=== PATIENT | female | born 1985 | race Two or more races ===

== ENCOUNTER → 2016-09-20 | Outpatient (REF) | payer MEDICAID, SELFPAY | LOC: M LAB REF 12:32 | PROVIDERS: ATTEND Physician Assistant | DX: R10.30 Lower abdominal pain, unspecified (principal) ==

== ENCOUNTER → 2016-10-09 | Outpatient (REF) | payer MEDICAID ==
[2016-10-09 13:42] LABS: MEAN CORPUSCULAR HEMOGLOBIN 28.8 pg (27.0-33.0); MEAN CORPUSCULAR HGB CONC 33.4 g/dl (32.0-36.5); MEAN CORPUSCULAR VOLUME 86.1 fl (80.0-96.0); RED CELL DISTRIBUTION WIDTH 12.8 % (11.5-14.5); WHITE BLOOD COUNT 7.5 K/mm3 (4.0-10.0)
[2016-10-09 13:53] LABS: ALBUMIN/GLOBULIN RATIO 1.14 (1.00-1.93); ALKALINE PHOSPHATASE 74 U/L (45-117); ALT/SGPT 17 U/L (12-78); ANION GAP 6 MEQ/L (8-16); AST/SGOT 14 U/L (15-37); BILIRUBIN,TOTAL 0.4 MG/DL (0.2-1.0); BLOOD UREA NITROGEN 14 MG/DL (7-18); CALCIUM LEVEL 9.7 MG/DL (8.5-10.1); CARBON DIOXIDE LEVEL 29 MEQ/L (21-32); CHLORIDE LEVEL 106 MEQ/L (98-107); CREATININE FOR GFR 0.84 MG/DL (0.55-1.02); GLOMERULAR FILTRATION RATE > 60.0 (>60); GLUCOSE, FASTING 75 MG/DL (70-105); POTASSIUM SERUM 4.5 MEQ/L (3.5-5.1); SODIUM LEVEL 141 MEQ/L (136-145); TOTAL PROTEIN 7.5 GM/DL (6.4-8.2)
== END ==
LOC: M SFHCPLAZ 10:44
PROVIDERS: ATTEND Nurse Practitioner Adult Health
DX: Z00.00 Encounter for general adult medical examination without abnormal findings (principal); E03.9 Hypothyroidism, unspecified

== ENCOUNTER 2017-02-28 12:31 | Emergency (ER) | payer MEDICAID ==
[~2017-02-28] VITALS: Ht 165.1 cm; Wt 79.5 kg
[2017-02-28 12:32] VITALS: BP 169/99
[2017-02-28] MEDS ORDERED: AMET90TA PO (12:42)
[2017-02-28] MEDS ORDERED: VENL1TAB35 PO (12:42)
[2017-02-28] MEDS ORDERED: LIOT25TA2 PO (12:42)
[2017-02-28] MEDS ORDERED: RANI75TA9 PO (12:42)
[2017-02-28] MEDS ORDERED: LOSA25TA8 PO (12:42)
[2017-02-28] MEDS ORDERED: BACT800T5 PO (13:50)
[2017-02-28] MEDS ORDERED: BACTRIM 160MG/800MG DS TAB PO ONE (14:00)
== END 2017-02-28 13:58 | disposition home or self-care (01) ==
LOC: M ED 12:31
DX: L02.212 Cutaneous abscess of back [any part, except buttock and flank] (principal); B95.62 Methicillin resistant Staphylococcus aureus infection as the cause of diseases classified elsewhere; I10 Essential (primary) hypertension; F41.9 Anxiety disorder, unspecified; N80.9 Endometriosis, unspecified; F17.210 Nicotine dependence, cigarettes, uncomplicated; Z79.899 Other long term (current) drug therapy

== ENCOUNTER 2017-04-07 10:32 | Emergency (ER) | payer MEDICAID ==
[~2017-04-07] VITALS: Ht 165.1 cm; Wt 79.5 kg
[~2017-04-07 10:32] MED LIST: AMET90TA PO; BACT800T5 PO; LIOT25TA2 PO; LOSA25TA8 PO; RANI75TA9 PO; VENL1TAB35 PO
[2017-04-07 10:33] VITALS: BP 134/92
[2017-04-07] MEDS ORDERED: DIFL150T PO (11:14)
[2017-04-07] MEDS ORDERED: DOXY100C37 PO (11:14)
== END 2017-04-07 11:26 | disposition home or self-care (01) ==
LOC: M ED 10:32
DX: L03.211 Cellulitis of face (principal); N80.9 Endometriosis, unspecified; Z86.14 Personal history of Methicillin resistant Staphylococcus aureus infection; Z79.899 Other long term (current) drug therapy

== ENCOUNTER 2017-04-22 08:58 | Emergency (ER) | payer MEDICAID, OTHER ==
[~2017-04-22] VITALS: Ht 165.1 cm; Wt 85.9 kg
[~2017-04-22 08:58] MED LIST changes: +DIFL150T PO; +DOXY100C37 PO
[2017-04-22] MEDS ORDERED: ZYRT10CA PO (10:17)
[2017-04-22 10:23] VITALS: BP 137/90
== END 2017-04-22 10:42 | disposition home or self-care (01) ==
LOC: M ED 08:58
DX: L25.9 Unspecified contact dermatitis, unspecified cause (principal)

== ENCOUNTER → 2017-05-02 | Outpatient (REF) | payer MEDICAID ==
[~2017-05-02] MED LIST changes: +ZYRT10CA PO
== END ==
LOC: M SFHCWAGY 12:15
PROVIDERS: ATTEND Nurse Practitioner Family
DX: Z12.4 Encounter for screening for malignant neoplasm of cervix (principal)

== ENCOUNTER 2017-08-09 14:16 | Emergency (ER) | payer MEDICAID ==
[2017-08-09 15:50] LABS: APPEARANCE, URINE HAZY (CLEAR); BACTERIA, URINE AUTO NEGATIVE (NEGATIVE); BILIRUBIN, URINE AUTO NEGATIVE (NEGATIVE); BLOOD, URINE BLOOD NEGATIVE (NEGATIVE); COLOR, URINE YELLOW (YELLOW); GLUCOSE, URINE (UA) AUTO NEGATIVE (NEGATIVE); KETONE, URINE AUTO 1+ mg/dL (NEGATIVE); LEUKOCYTE ESTERASE, URINE AUTO NEGATIVE (NEGATIVE); MUCUS, URINE LARGE (NEGATIVE); NITRITE, URINE AUTO NEGATIVE (NEGATIVE); PROTEIN, URINE AUTO NEGATIVE (NEGATIVE); RBC, URINE AUTO 3 /HPF (0-3); SPECIFIC GRAVITY URINE AUTO 1.025 (1.002-1.035); SQUAMOUS EPITHELIAL CELL UR AU 1 /HPF (0-6); UROBILINOGEN, URINE AUTO 0.2 mg/dL (0.0-2.0); WBC, URINE AUTO 1 /HPF (0-3)
[2017-08-09 15:54] LABS: BASO % 0.1 % (0.0-1.0); EOS % 0.1 % (0.0-3.0); HEMATOCRIT 40.9 % (36.0-47.0); HEMOGLOBIN 13.8 g/dl (12.0-16.0); IMMATURE GRANULOCYTE # 0.1 10^3/uL (0-0); IMMATURE GRANULOCYTE % 0.4 % (0-0); LYMPH % 6.1 % (24.0-44.0); MEAN CORPUSCULAR HGB CONC 33.7 g/dl (32.0-36.5); MEAN CORPUSCULAR VOLUME 83.1 fl (80.0-96.0); MONO # 0.6 10^3/uL (0.0-0.8); MONO % 3.8 % (0.0-5.0); NEUTROPHILS % 89.5 % (36.0-66.0); PLATELET COUNT, AUTOMATED 231 10^3/uL (150-450); RED BLOOD COUNT 4.92 10^6/uL (4.00-5.40); RED CELL DISTRIBUTION WIDTH 12.8 % (11.5-14.5); WHITE BLOOD COUNT 16.8 10^3/uL (4.0-10.0)
[2017-08-09 16:16] LABS: ALBUMIN 4.4 GM/DL (3.2-5.2); ALBUMIN/GLOBULIN RATIO 1.38 (1.00-1.93); ALKALINE PHOSPHATASE 72 U/L (45-117); ALT/SGPT 23 U/L (12-78); ANION GAP 10 MEQ/L (8-16); AST/SGOT 13 U/L (7-37); BILIRUBIN,TOTAL 0.7 MG/DL (0.2-1.0); BLOOD UREA NITROGEN 16 MG/DL (7-18); CALCIUM LEVEL 9.4 MG/DL (8.5-10.1); CARBON DIOXIDE LEVEL 25 MEQ/L (21-32); CHLORIDE LEVEL 105 MEQ/L (98-107); CREATININE FOR GFR 0.83 MG/DL (0.55-1.02); GLOMERULAR FILTRATION RATE > 60.0 (>60); GLUCOSE, FASTING 90 MG/DL (70-105); POTASSIUM SERUM 3.9 MEQ/L (3.5-5.1); SODIUM LEVEL 140 MEQ/L (136-145); TOTAL PROTEIN 7.6 GM/DL (6.4-8.2)
[2017-08-09] MEDS ORDERED: diphenhydrAMINE INJ 50MG/ML VIAL (J1200) As Ordered (16:53)
[2017-08-09] MEDS: diphenhydrAMINE INJ 50MG/ML VIAL (J1200) IV (16:54)
[2017-08-09] MEDS ORDERED: ISOVUE-370 76% 100ML VIAL (Q9967) As Ordered (16:55)
[2017-08-09] MEDS: KETOROLAC 30 MG/ML VIAL (J1885) IV (16:55)
[2017-08-09] MEDS: NS 1,000 ML IV (17:39)
[2017-08-09] MEDS ORDERED: METOCLOPRAMIDE INJ 10MG/2ML VIAL (J2765) As Ordered (17:49)
[2017-08-09] MEDS ORDERED: diphenhydrAMINE INJ 50MG/ML VIAL (J1200) IV (17:50)
[2017-08-09] MEDS: PROMETHAZINE INJ 25 MG/ML VIAL (J2550) IV (17:56)
== END 2017-08-09 19:15 | disposition home or self-care (01) ==
LOC: M ED 14:16
DX: K52.9 Noninfective gastroenteritis and colitis, unspecified (principal); I10 Essential (primary) hypertension; K21.9 Gastro-esophageal reflux disease without esophagitis; N80.9 Endometriosis, unspecified; E03.9 Hypothyroidism, unspecified; F41.9 Anxiety disorder, unspecified; F32.9 Major depressive disorder, single episode, unspecified; Z79.899 Other long term (current) drug therapy
CPT/HCPCS: J1200

== ENCOUNTER → 2017-12-13 | Outpatient (CLI) | payer MEDICAID ==
[2017-12-13 18:18] LABS: ALBUMIN 4.4 GM/DL (3.2-5.2); ALBUMIN/GLOBULIN RATIO 1.26 (1.00-1.93); ALKALINE PHOSPHATASE 68 U/L (45-117); ALT/SGPT 19 U/L (12-78); ANION GAP 8 MEQ/L (8-16); AST/SGOT 12 U/L (7-37); BILIRUBIN,TOTAL 0.4 MG/DL (0.2-1.0); BLOOD UREA NITROGEN 14 MG/DL (7-18); CALCIUM LEVEL 9.1 MG/DL (8.5-10.1); CARBON DIOXIDE LEVEL 25 MEQ/L (21-32); CHLORIDE LEVEL 109 MEQ/L (98-107); CREATININE FOR GFR 0.81 MG/DL (0.55-1.30); GLOMERULAR FILTRATION RATE > 60.0 (>60); GLUCOSE, FASTING 86 MG/DL (70-100); POTASSIUM SERUM 4.2 MEQ/L (3.5-5.1); SODIUM LEVEL 142 MEQ/L (136-145); THYROID STIMULATING HORMONE 0.358 uIU/ML (0.358-3.740); TOTAL PROTEIN 7.9 GM/DL (6.4-8.2)
== END ==
LOC: M WUC 12:01
DX: I10 Essential (primary) hypertension (principal); E03.9 Hypothyroidism, unspecified
CPT/HCPCS: 84443

== ENCOUNTER 2018-03-25 10:13 | Emergency (ER) | payer OTHER, MEDICAID ==
[2018-03-25] MEDS: KETOROLAC TROMETHAMINE 10 MG TAB PO (11:47)
== END 2018-03-25 12:16 | disposition home or self-care (01) ==
LOC: M ED 10:13
DX: S62.394A Other fracture of fourth metacarpal bone, right hand, initial encounter for closed fracture (principal); X50.9XXA Other and unspecified overexertion or strenuous movements or postures, initial encounter; Y92.89 Other specified places as the place of occurrence of the external cause; Y93.89 Activity, other specified; Y99.0 Civilian activity done for income or pay; I10 Essential (primary) hypertension; E03.9 Hypothyroidism, unspecified; N80.9 Endometriosis, unspecified; F41.9 Anxiety disorder, unspecified; F33.9 Major depressive disorder, recurrent, unspecified; Z79.890 Hormone replacement therapy; Z79.899 Other long term (current) drug therapy
CPT/HCPCS: 73090

== ENCOUNTER 2018-05-20 08:37 | Emergency (ER) | payer OTHER, MEDICAID ==
[2018-05-20] MEDS: IBUPROFEN 800 MG TAB PO (09:26)
== END 2018-05-20 10:11 | disposition home or self-care (01) ==
LOC: M ED 08:37
DX: S62.394B Other fracture of fourth metacarpal bone, right hand, initial encounter for open fracture (principal); W23.0XXA Caught, crushed, jammed, or pinched between moving objects, initial encounter; Y92.89 Other specified places as the place of occurrence of the external cause; I10 Essential (primary) hypertension; K21.9 Gastro-esophageal reflux disease without esophagitis; F33.9 Major depressive disorder, recurrent, unspecified; F41.9 Anxiety disorder, unspecified; Z79.899 Other long term (current) drug therapy
CPT/HCPCS: 73130

== ENCOUNTER → 2018-07-07 | Outpatient (CLI) | payer OTHER ==
[~2018-07-07] MED LIST changes: +IBUP-1022 PO; +KETO10TAB PO; +LOSA25TA33 PO; -LOSA25TA8 PO; +NORCOTAB PO; +RANI75TA10 PO; -RANI75TA9 PO; +ZOFR4TAB14 PO
--- NOTE | 2018-07-07 10:07 | REP ---
CT study of the right hand without contrast: History: Evaluate fourth metacarpal fracture. Question nonunion. Comparison radiographs are reviewed from March 25, 2018 and May 20, 2018 showing an obliquely oriented fracture through the distal fourth metacarpal. CT technique: Helical scanning is acquired. 2 mm axial images are generated. Coronal and sagittal multiplanar reformation images are generated. 3-D surface rendered imaging is generated and viewed rotationally. CT findings: The obliquely oriented fracture through the distal fourth metacarpal is seen. The fracture appears well healed. There is no evidence to suggest nonunion. There is some resultant shortening from slight override. No other malalignment is seen. No other fracture is seen. Impression: Obliquely oriented distal fourth metacarpal fracture with slight shortening. There is no evidence to suggest delayed or nonunion. There is evidence of good bony healing. Electronically Signed by Michael Joel MD 07/07/2018 11:44 A
== END ==
LOC: M RAD 08:35
PROVIDERS: ATTEND Physician Assistant
DX: S62.324D Displaced fracture of shaft of fourth metacarpal bone, right hand, subsequent encounter for fracture with routine healing (principal); X58.XXXD Exposure to other specified factors, subsequent encounter; Y92.89 Other specified places as the place of occurrence of the external cause

== ENCOUNTER → 2018-12-16 | Outpatient (REF) | payer MEDICAID ==
[~2018-12-16] MED LIST changes: +HYDR-3715 PO; +LOSA25TA14 PO; -LOSA25TA33 PO; -NORCOTAB PO; -RANI75TA10 PO; +RANI75TA15 PO
== END ==
LOC: M SFHCWAGY 15:21
PROVIDERS: ATTEND Nurse Practitioner Family
DX: Z12.4 Encounter for screening for malignant neoplasm of cervix (principal)

== ENCOUNTER 2019-02-25 11:50 | Emergency (ER) | payer MEDICAID ==
[~2019-02-25] VITALS: Ht 165.1 cm; Wt 86.4 kg
[2019-02-25] MEDS ORDERED: CLEO300C2 PO (15:33)
[2019-02-25 15:38] VITALS: BP 138/78
[2019-02-25 17:09] LABS: CHLAMYDIA DNA AMPLIFICATION NEGATIVE (NEGATIVE); GC DNA AMPLIFICATION NEGATIVE (NEGATIVE)
== END 2019-02-25 15:39 | disposition home or self-care (01) ==
LOC: M ED 11:50
DX: N76.0 Acute vaginitis (principal); N80.9 Endometriosis, unspecified; E03.9 Hypothyroidism, unspecified; Z79.899 Other long term (current) drug therapy; Z79.3 Long term (current) use of hormonal contraceptives

== ENCOUNTER → 2019-04-06 | Outpatient (REF) | payer MEDICAID ==
[~2019-04-06] MED LIST changes: +CLEO300C2 PO
[2019-04-08 14:07] LABS: HPV HYBRID CAPTURE II Negative (Negative)
== END ==
LOC: M SFHCWAGY 14:09
PROVIDERS: ATTEND Nurse Practitioner Family
DX: B37.3 Candidiasis of vulva and vagina (principal)

== ENCOUNTER 2019-08-23 08:34 | Emergency (ER) | payer MEDICAID ==
[~2019-08-23] VITALS: Ht 165.1 cm; Wt 88.4 kg
[~2019-08-23 08:34] MED LIST changes: -LIOT25TA2 PO; +LIOT25TA8 PO
[2019-08-23] MEDS ORDERED: CYCLOBENZAPRINE 10 MG TAB PO ONE (10:00)
[2019-08-23] MEDS ORDERED: KETOROLAC TROMETHAMINE 10 MG TAB PO ONE (10:00)
[2019-08-23 10:18] LABS: BASO % 0.1 % (0.0-1.0); EOS % 0.1 % (0.0-3.0); HEMATOCRIT 42.1 % (36.0-47.0); HEMOGLOBIN 13.9 g/dl (12.0-15.5); LYMPH # 0.3 10^3/uL (1.5-5.0); LYMPH % 4.3 % (24.0-44.0); MEAN CORPUSCULAR HEMOGLOBIN 28.3 pg (27.0-33.0); MEAN CORPUSCULAR VOLUME 85.6 fl (80.0-96.0); MONO # 0.5 10^3/uL (0.0-0.8); MONO % 7.4 % (0.0-5.0); NEUTROPHILS # 6.3 10^3/uL (1.5-8.5); NEUTROPHILS % 87.5 % (36.0-66.0); PLATELET COUNT, AUTOMATED 224 10^3/uL (150-450); RED BLOOD COUNT 4.92 10^6/uL (4.00-5.40); WHITE BLOOD COUNT 7.2 10^3/uL (4.0-10.0)
[2019-08-23 10:40] LABS: ERYTHROCYTE SEDIMENTATION RATE 4 mm/hr (0-20)
[2019-08-23 10:45] LABS: ALBUMIN 4.3 GM/DL (3.2-5.2); BILIRUBIN,DIRECT 0.1 MG/DL (0.0-0.2); BILIRUBIN,TOTAL 0.3 MG/DL (0.2-1.0); C REACTIVE PROTEIN QUANTITATIV 2.02 MG/DL (0.00-0.30); TOTAL PROTEIN 7.9 GM/DL (6.4-8.2)
[2019-08-23] MEDS ORDERED: CYCL5TAB PO (11:14)
[2019-08-23] MEDS ORDERED: KETO10TAB PO (11:14)
[2019-08-23 11:23] VITALS: BP 148/92
== END 2019-08-23 11:25 | disposition home or self-care (01) ==
LOC: M ED 08:34
DX: M62.838 Other muscle spasm (principal); I10 Essential (primary) hypertension; K21.9 Gastro-esophageal reflux disease without esophagitis; N80.9 Endometriosis, unspecified; E03.9 Hypothyroidism, unspecified; F41.9 Anxiety disorder, unspecified; F32.9 Major depressive disorder, single episode, unspecified; Z79.3 Long term (current) use of hormonal contraceptives; Z79.899 Other long term (current) drug therapy

== ENCOUNTER 2019-09-15 08:16 | Emergency (ER) | payer MEDICAID ==
[~2019-09-15] VITALS: Ht 165.1 cm; Wt 90.5 kg
[~2019-09-15 08:16] MED LIST changes: +CYCL5TAB PO
[2019-09-15] MEDS ORDERED: NAPR-885 PO (10:12)
[2019-09-15 10:14] VITALS: BP 133/90
--- NOTE | 2019-09-15 10:15 | REP ---
Sternum three views: No sternal fracture is identified. The study is otherwise unremarkable. Electronically Signed by Saurabh Gill MD 09/15/2019 10:06 A
--- NOTE | 2019-09-15 10:16 | REP ---
PA chest, single view: Comparison is 08/09/2017. The lung simental are clear. The cardiac size is normal. The leisa, mediastinum, and skeletal structures are unremarkable. Impression: Negative PA chest. There is no interval change. Electronically Signed by Saurabh Gill MD 09/15/2019 10:07 A
== END 2019-09-15 10:17 | disposition home or self-care (01) ==
LOC: M ED 08:16
DX: S23.429A Unspecified sprain of sternum, initial encounter (principal); S80.02XA Contusion of left knee, initial encounter; W22.8XXA Striking against or struck by other objects, initial encounter; Y92.9 Unspecified place or not applicable; Y93.9 Activity, unspecified; Y99.9 Unspecified external cause status; I10 Essential (primary) hypertension; N80.9 Endometriosis, unspecified; Z79.3 Long term (current) use of hormonal contraceptives; Z79.899 Other long term (current) drug therapy

== ENCOUNTER → 2019-11-26 | Outpatient (REF) | payer MEDICAID ==
[~2019-11-26] MED LIST changes: +NAPR-885 PO
[2019-11-26 16:12] LABS: BASO % 0.1 % (0.0-1.0); EOS # 0.1 10^3/uL (0.0-0.5); EOS % 1.1 % (0.0-3.0); HEMOGLOBIN 14.8 g/dl (12.0-15.5); LYMPH # 2.5 10^3/uL (1.5-5.0); LYMPH % 26.9 % (24.0-44.0); MEAN CORPUSCULAR HEMOGLOBIN 28.1 pg (27.0-33.0); MEAN CORPUSCULAR HGB CONC 32.9 g/dl (32.0-36.5); MEAN CORPUSCULAR VOLUME 85.6 fl (80.0-96.0); MONO # 0.5 10^3/uL (0.0-0.8); MONO % 5.3 % (0.0-5.0); NEUTROPHILS # 6.3 10^3/uL (1.5-8.5); NEUTROPHILS % 66.2 % (36.0-66.0); PLATELET COUNT, AUTOMATED 278 10^3/uL (150-450); RED BLOOD COUNT 5.26 10^6/uL (4.00-5.40); WHITE BLOOD COUNT 9.4 10^3/uL (4.0-10.0)
[2019-11-26 16:44] LABS: ALBUMIN 4.1 GM/DL (3.2-5.2); ALT/SGPT 24 U/L (12-78); BILIRUBIN,TOTAL 0.7 MG/DL (0.2-1.0); BLOOD UREA NITROGEN 19 MG/DL (7-18); CALCIUM LEVEL 9.7 MG/DL (8.5-10.1); CARBON DIOXIDE LEVEL 25 MEQ/L (21-32); CHLORIDE LEVEL 105 MEQ/L (98-107); CHOLESTEROL LEVEL 254 MG/DL (<200); CREATININE FOR GFR 0.77 MG/DL (0.55-1.30); FREE T4 0.78 NG/DL (0.76-1.46); GLOMERULAR FILTRATION RATE > 60.0 (>60); GLUCOSE, FASTING 86 MG/DL (70-100); HDL CHOLESTEROL 50 MG/DL (>40); LDL CHOLESTEROL 160 MG/DL (<100); NON-HDL-C 204 MG/DL; POTASSIUM SERUM 4.6 MEQ/L (3.5-5.1); SODIUM LEVEL 137 MEQ/L (136-145); TOTAL PROTEIN 7.9 GM/DL (6.4-8.2); TRIGLYCERIDES LEVEL 219 MG/DL (<150)
[2019-11-26 17:36] LABS: HEMOGLOBIN A1c 5.4 %
== END ==
LOC: M SFHCPLAZ 13:43
PROVIDERS: ATTEND Physician Assistant
DX: E03.9 Hypothyroidism, unspecified (principal); I10 Essential (primary) hypertension; Z00.00 Encounter for general adult medical examination without abnormal findings; K21.9 Gastro-esophageal reflux disease without esophagitis; Z13.220 Encounter for screening for lipoid disorders; Z13.1 Encounter for screening for diabetes mellitus

== ENCOUNTER 2020-07-15 19:19 | Emergency (ER) | payer MEDICAID ==
[~2020-07-15] VITALS: Ht 165.1 cm; Wt 95.5 kg
[2020-07-15] MEDS ORDERED: ACETAMINOPHEN 500 MG TAB PO ONE (20:00)
[2020-07-15 20:29] LABS: RSV AMPLIFICATION NEGATIVE (NEGATIVE)
[2020-07-15 21:04] VITALS: BP 134/74
== END 2020-07-15 21:05 | disposition home or self-care (01) ==
LOC: M ED 19:19
DX: U07.1 COVID-19 (principal); I10 Essential (primary) hypertension; E03.9 Hypothyroidism, unspecified; Z79.899 Other long term (current) drug therapy; Z79.3 Long term (current) use of hormonal contraceptives

== ENCOUNTER → 2021-04-25 | Outpatient (REF) | payer MEDICAID ==
[~2021-04-25] MED LIST changes: -DOXY100C37 PO; +DOXY1CAP62 PO
== END ==
LOC: M SFHCWAGY 17:47
PROVIDERS: ATTEND Nurse Practitioner Women's Health
DX: Z12.4 Encounter for screening for malignant neoplasm of cervix (principal)

== ENCOUNTER → 2021-11-23 | Outpatient (CLI) | payer MEDICAID, OTHER ==
[~2021-11-23] MED LIST changes: +DOXY-443 PO; -DOXY1CAP62 PO; +LOSA25TA13 PO; -LOSA25TA14 PO; +METHACHOLINE KIT (J7674) INH ONE
== END ==
LOC: M CARPUL 10:17
PROVIDERS: ATTEND Nurse Practitioner Adult Health
DX: R06.02 Shortness of breath (principal)
CPT/HCPCS: 71046; 94070; J7674

== ENCOUNTER → 2021-11-23 | Outpatient (CLI) | payer OTHER ==
[~2021-11-23] MED LIST changes: -METHACHOLINE KIT (J7674) INH ONE
[2021-11-23 12:59] LABS: HEMOGLOBIN A1c 5.3 %
[2021-11-23 13:01] LABS: ALBUMIN 3.6 GM/DL (3.2-5.2); ALT/SGPT 27 U/L (12-78); BILIRUBIN,TOTAL 0.3 MG/DL (0.2-1.0); BLOOD UREA NITROGEN 18 MG/DL (7-18); CALCIUM LEVEL 9.8 MG/DL (8.5-10.1); CARBON DIOXIDE LEVEL 27 MEQ/L (21-32); CHLORIDE LEVEL 107 MEQ/L (98-107); CREATININE FOR GFR 0.71 MG/DL (0.55-1.30); GLOMERULAR FILTRATION RATE > 60.0 (>60); GLUCOSE, FASTING 119 MG/DL (70-100); POTASSIUM SERUM 3.9 MEQ/L (3.5-5.1); SODIUM LEVEL 140 MEQ/L (136-145); TOTAL PROTEIN 7.6 GM/DL (6.4-8.2)
== END ==
LOC: M LAB 11:41
PROVIDERS: ATTEND Nurse Practitioner Adult Health
DX: I10 Essential (primary) hypertension (principal); Z13.1 Encounter for screening for diabetes mellitus; E03.9 Hypothyroidism, unspecified

== ENCOUNTER → 2022-03-21 | Outpatient (CLI) | payer OTHER | LOC: M PLAIMG 12:19 | PROVIDERS: ATTEND Nurse Practitioner Adult Health | DX: M54.2 Cervicalgia (principal) ==

== ENCOUNTER → 2022-05-24 | Outpatient (CLI) | payer OTHER ==
[2022-05-24 17:17] LABS: BASO % 0.3 % (0.0-1.0); EOS # 0.2 10^3/uL (0.0-0.5); EOS % 1.3 % (0.0-3.0); HEMATOCRIT 41.4 % (36.0-47.0); HEMOGLOBIN 13.6 g/dl (12.0-15.5); LYMPH # 2.4 10^3/uL (1.5-5.0); LYMPH % 18.4 % (24.0-44.0); MEAN CORPUSCULAR HEMOGLOBIN 27.9 pg (27.0-33.0); MEAN CORPUSCULAR HGB CONC 32.9 g/dl (32.0-36.5); MONO % 7.6 % (2.0-8.0); NEUTROPHILS # 9.3 10^3/uL (1.5-8.5); NEUTROPHILS % 72.1 % (36.0-66.0); PLATELET COUNT, AUTOMATED 296 10^3/uL (150-450); RED BLOOD COUNT 4.87 10^6/uL (4.00-5.40)
[2022-05-24 17:39] LABS: ALBUMIN 3.6 GM/DL (3.2-5.2); ALT/SGPT 24 U/L (12-78); AMYLASE 48 U/L (25-115); BILIRUBIN,TOTAL 0.4 MG/DL (0.2-1.0); BLOOD UREA NITROGEN 12 MG/DL (7-18); CALCIUM LEVEL 9.2 MG/DL (8.5-10.1); CARBON DIOXIDE LEVEL 26 MEQ/L (21-32); CHLORIDE LEVEL 106 MEQ/L (98-107); GLOMERULAR FILTRATION RATE > 60.0 (>60); GLUCOSE, FASTING 78 MG/DL (70-100); LIPASE 120 U/L (73-393); SODIUM LEVEL 139 MEQ/L (136-145); TOTAL PROTEIN 7.7 GM/DL (6.4-8.2)
== END ==
LOC: M WUC 13:45
PROVIDERS: ATTEND Physician Assistant
DX: R10.816 Epigastric abdominal tenderness (principal)

== ENCOUNTER 2022-08-12 07:36 | Emergency (ER) | payer OTHER ==
[~2022-08-12] VITALS: Ht 165.1 cm; Wt 97.7 kg
[2022-08-12] MEDS ORDERED: KETOROLAC 30 MG/ML 1ML VIAL IM ONE (09:00)
[2022-08-12] MEDS ORDERED: METH-1165 PO (09:03)
[2022-08-12] MEDS ORDERED: IBUP80TA PO (09:03)
[2022-08-12 09:30] VITALS: BP 170/110
== END 2022-08-12 09:46 | disposition home or self-care (01) ==
LOC: M ED 07:36
DX: S39.012A Strain of muscle, fascia and tendon of lower back, initial encounter (principal); X50.0XXA Overexertion from strenuous movement or load, initial encounter; I10 Essential (primary) hypertension; F41.9 Anxiety disorder, unspecified; F32.A Depression, unspecified; Z79.811 Long term (current) use of aromatase inhibitors; Z79.899 Other long term (current) drug therapy
CPT/HCPCS: 96372; 99283; J1885

== ENCOUNTER → 2022-09-02 | Outpatient (REF) | payer OTHER ==
[~2022-09-02] MED LIST changes: +IBUP80TA PO; +METH-1165 PO
== END ==
LOC: M SFHCWAGY 17:36
PROVIDERS: ATTEND Advanced Practice Midwife
DX: Z12.4 Encounter for screening for malignant neoplasm of cervix (principal)
CPT/HCPCS: 87624; G0123

== ENCOUNTER → 2022-11-11 | Outpatient (CLI) | payer OTHER ==
[2022-11-11 13:26] LABS: HEMATOCRIT 44.1 % (36.0-47.0); MEAN CORPUSCULAR HEMOGLOBIN 27.2 pg (27.0-33.0); MEAN CORPUSCULAR HGB CONC 31.7 g/dl (32.0-36.5); MEAN CORPUSCULAR VOLUME 85.6 fl (80.0-96.0); PLATELET COUNT, AUTOMATED 292 10^3/uL (150-450); RED BLOOD COUNT 5.15 10^6/uL (4.00-5.40); WHITE BLOOD COUNT 8.2 10^3/uL (4.0-10.0)
[2022-11-11 13:30] LABS: ALBUMIN 3.8 G/DL (3.2-5.2); ALKALINE PHOSPHATASE 75 U/L (46-116); ALT/SGPT 23 U/L (7.0-40); AST/SGOT 22 U/L (<34); BILIRUBIN,TOTAL 0.5 MG/DL (0.3-1.2); BLOOD UREA NITROGEN 12 MG/DL (9-23); CALCIUM LEVEL 9.3 MG/DL (8.5-10.1); CARBON DIOXIDE LEVEL 26 MMOL/L (20-31); CHLORIDE LEVEL 106 MMOL/L (98-107); CHOLESTEROL LEVEL 230 MG/DL (<200); CHOLESTEROL RISK RATIO 4.33 (<5); CREATININE FOR GFR 0.68 MG/DL (0.55-1.30); GLOMERULAR FILTRATION RATE > 60.0 (>60); GLUCOSE, FASTING 90 MG/DL (60-100); HDL CHOLESTEROL 53.1 MG/DL (>40); IRON (FE) 100 UG/DL (50-170); LDL CHOLESTEROL 145.1 MG/DL (<100); NON-HDL-C 176.9 MG/DL; PERCENT SATURATION 24.7 % (13.2-45.0); SODIUM LEVEL 137 MMOL/L (136-145); THYROID STIMULATING HORMONE 2.031 uIU/ML (0.55-4.78); TOTAL IRON BINDING CAPACITY 405 UG/DL (250-425); TOTAL PROTEIN 7.4 G/DL (5.7-8.2); TRIGLYCERIDES LEVEL 159 MG/DL (<150)
[2022-11-11 13:31] LABS: FERRITIN 84.7 NG/ML (7.3-270.7)
== END ==
LOC: M WUC 09:25
PROVIDERS: ATTEND Nurse Practitioner Adult Health
DX: Z00.00 Encounter for general adult medical examination without abnormal findings (principal); I10 Essential (primary) hypertension; Z13.220 Encounter for screening for lipoid disorders; E03.9 Hypothyroidism, unspecified

== ENCOUNTER 2023-07-18 10:08 | Day surgery (SDC) | payer OTHER ==
[~2023-07-18] VITALS: Ht 165.1 cm; Wt 99.8 kg
[~2023-07-18 10:08] MED LIST changes: +LEVOTAB18; +LOSA50TA28 PO; +OMEP40CA5 PO; +VENL75TA2 PO
[2023-07-18] MEDS ORDERED: ceFAZolin SOD 2 GM in IV 1 EA IV ONE (10:40)
[2023-07-18] MEDS ORDERED: propofoL 200 MG/20 ML VIAL As Ordered ONE (10:41)
[2023-07-18] MEDS ORDERED: ROCURONIUM BROMIDE 50MG/5ML VIAL As Ordered ONE ×2 (10:41→12:41)
[2023-07-18] MEDS ORDERED: MIDAZOLAM INJ 2MG/2ML VIAL As Ordered ONE (10:41)
[2023-07-18] MEDS ORDERED: ONDANSETRON 4MG 2ML VIAL As Ordered ONE (10:41)
[2023-07-18] MEDS ORDERED: LIDOCAINE 2% 100MG/5ML SDV (FOR ANES.) As Ordered ONE (10:41)
[2023-07-18] MEDS ORDERED: KETOROLAC 60MG 2ML VIAL As Ordered ONE (10:41)
[2023-07-18] MEDS ORDERED: SUGAMMADEX SODIUM 500 MG/5 ML VIAL (BRIDION) As Ordered ONE (10:41)
[2023-07-18] MEDS ORDERED: fentaNYL 250 MCG/5 ML INJECTION As Ordered ONE (10:41)
[2023-07-18 10:47] LABS: HEMATOCRIT 43.2 % (36.0-47.0); HEMOGLOBIN 14.9 g/dl (12.0-15.5); MEAN CORPUSCULAR HEMOGLOBIN 28.9 pg (27.0-33.0); MEAN CORPUSCULAR HGB CONC 34.5 g/dl (32.0-36.5); MEAN CORPUSCULAR VOLUME 83.9 fl (80.0-96.0); PLATELET COUNT, AUTOMATED 346 10^3/uL (150-450); RED BLOOD COUNT 5.15 10^6/uL (4.00-5.40); WHITE BLOOD COUNT 8.2 10^3/uL (4.0-10.0)
[2023-07-18] MEDS ORDERED: LR 1,000 ML IV SCH ×3 (10:50→14:40)
[2023-07-18] MEDS ORDERED: dexmedeTOMIDine (4MCG/ML)200MCG/50ML BTL (PRECEDEX) As Ordered ONE (11:32)
[2023-07-18] MEDS ORDERED: OXYC1TAB23 PO (11:45)
[2023-07-18] MEDS ORDERED: IBUP-1022 PO (11:45)
[2023-07-18] MEDS ORDERED: ACETAMINOPHEN 1000MG 100ML IV BAG As Ordered ONE (12:38)
[2023-07-18] MEDS ORDERED: hydrALAZINE 20MG/ML 1ML VIAL As Ordered ONE (12:57)
[2023-07-18] MEDS ORDERED: fentaNYL 100 MCG/2 ML INJECTION As Ordered ONE (13:43)
[2023-07-18] MEDS ORDERED: fentaNYL 100 MCG/2 ML INJECTION IV PRN (13:55)
[2023-07-18] MEDS ORDERED: ONDANSETRON 4MG 2ML VIAL IV PRN (13:55)
[2023-07-18] MEDS ORDERED: METOCLOPRAMIDE INJ 10MG/2ML VIAL IV PRN (13:55)
[2023-07-18] MEDS: oxyCODONE 5MG TAB PO PRN ×2 (14:09→14:40)
[2023-07-18] MEDS: HYDROMORPHONE HCL 0.5 MG/ 0.5 ML SYRINGE IV PRN ×2 (14:09→14:19)
[2023-07-18] MEDS ORDERED: PERCOCET 5MG/325MG TAB PO PRN (14:45)
[2023-07-18 16:02] VITALS: BP 136/64; TEMP 97.7; O2SAT 99
== END 2023-07-18 16:27 | disposition home or self-care (01) ==
LOC: M SDC 10:08
PROVIDERS: ATTEND Specialist
DX: N80.321 Superficial endometriosis of the posterior cul-de-sac (principal); R10.2 Pelvic and perineal pain; I10 Essential (primary) hypertension; E03.9 Hypothyroidism, unspecified; K21.9 Gastro-esophageal reflux disease without esophagitis; Z79.899 Other long term (current) drug therapy; Z79.3 Long term (current) use of hormonal contraceptives
CPT/HCPCS: 58552; 81025; 85027; 86850; 86900; 86901; 88307; J0131; J0360; J0665; J0690; J1100; J1170; J1885; J2250; J2405; J2765; J3010; S2900

== ENCOUNTER → 2023-10-30 | Outpatient (CLI) | payer OTHER ==
[~2023-10-30] MED LIST changes: +OXYC1TAB23 PO
[2023-10-30 15:49] LABS: FREE T4 0.84 NG/DL (0.89-1.76); THYROID STIMULATING HORMONE 1.231 uIU/ML (0.55-4.78)
[2023-10-30 15:50] LABS: ALKALINE PHOSPHATASE 108 U/L (46-116); ALT/SGPT 59 U/L (7.0-40); AST/SGOT 34 U/L (<34); BILIRUBIN,TOTAL 0.4 MG/DL (0.3-1.2); BLOOD UREA NITROGEN 22 MG/DL (9-23); CALCIUM LEVEL 9.8 MG/DL (8.5-10.1); CARBON DIOXIDE LEVEL 26 MMOL/L (20-31); CHLORIDE LEVEL 108 MMOL/L (98-107); GLOMERULAR FILTRATION RATE > 60.0 (>60); GLUCOSE, FASTING 84 MG/DL (60-100); POTASSIUM SERUM 4.4 MMOL/L (3.5-5.1); SODIUM LEVEL 141 MMOL/L (136-145); TOTAL PROTEIN 7.1 G/DL (5.7-8.2)
== END ==
LOC: M PLALAB 13:53
PROVIDERS: ATTEND Nurse Practitioner Adult Health
DX: I10 Essential (primary) hypertension (principal); E03.9 Hypothyroidism, unspecified

== ENCOUNTER → 2024-05-18 | Outpatient (CLI) | payer OTHER ==
[~2024-05-18] MED LIST changes: +DOXY-441 PO; -DOXY-443 PO
[2024-05-18 11:07] LABS: HEMOGLOBIN A1c 5.3 % (4.0-6.0)
[2024-05-18 11:19] LABS: LIPASE 35 U/L (12-53)
[2024-05-18 11:21] LABS: AMYLASE 72 U/L (30-118)
[2024-05-18 11:22] LABS: ALBUMIN 3.8 G/DL (3.2-5.2); ALKALINE PHOSPHATASE 100 U/L (35-104); ALT/SGPT 52 U/L (7.0-40); AST/SGOT 37 U/L (<34); BILIRUBIN,TOTAL 0.4 MG/DL (0.3-1.2); BLOOD UREA NITROGEN 14 MG/DL (9-23); CALCIUM LEVEL 9.6 MG/DL (8.5-10.1); CARBON DIOXIDE LEVEL 27 MMOL/L (20-31); CHLORIDE LEVEL 107 MMOL/L (98-107); CHOLESTEROL LEVEL 245 MG/DL (<200); CHOLESTEROL RISK RATIO 4.22 (<5); CREATININE FOR GFR 0.68 MG/DL (0.55-1.30); GLOMERULAR FILTRATION RATE > 60.0 (>60); GLUCOSE, FASTING 106 MG/DL (60-100); POTASSIUM SERUM 4.5 MMOL/L (3.5-5.1); SODIUM LEVEL 138 MMOL/L (136-145); TOTAL PROTEIN 7.2 G/DL (5.7-8.2); TRIGLYCERIDES LEVEL 110 MG/DL (<150)
[2024-05-18 11:23] LABS: FREE T4 0.95 NG/DL (0.89-1.76)
[2024-05-18 11:44] LABS: THYROID STIMULATING HORMONE 3.656 uIU/ML (0.55-4.78)
== END ==
LOC: M PLALAB 06:56
PROVIDERS: ATTEND Nurse Practitioner Adult Health
DX: Z00.01 Encounter for general adult medical examination with abnormal findings (principal); I10 Essential (primary) hypertension; E03.9 Hypothyroidism, unspecified; Z13.220 Encounter for screening for lipoid disorders

== ENCOUNTER → 2024-06-03 | Outpatient (REF) | payer OTHER ==
[~2024-06-03] MED LIST changes: -CYCL5TAB PO; +CYCL5TAB4 PO
== END ==
LOC: M SFHCPLAZ 14:44
DX: L03.90 Cellulitis, unspecified (principal)

== ENCOUNTER → 2024-08-13 | Outpatient (CLI) | payer OTHER ==
[2024-08-13 11:43] LABS: BASO % 0.3 % (0.0-1.0); EOS # 0.2 10^3/uL (0.0-0.5); EOS % 1.9 % (0.0-3.0); HEMOGLOBIN 13.9 g/dl (12.0-15.5); LYMPH # 2.1 10^3/uL (1.5-5.0); LYMPH % 27.3 % (24.0-44.0); MEAN CORPUSCULAR HEMOGLOBIN 28.1 pg (27.0-33.0); MEAN CORPUSCULAR HGB CONC 33.1 g/dl (32.0-36.5); MEAN CORPUSCULAR VOLUME 84.8 fl (80.0-96.0); MONO # 0.5 10^3/uL (0.0-0.8); MONO % 6.1 % (2.0-8.0); NEUTROPHILS % 64.1 % (36.0-66.0); PLATELET COUNT, AUTOMATED 296 10^3/uL (150-450); RED BLOOD COUNT 4.95 10^6/uL (4.00-5.40); WHITE BLOOD COUNT 7.8 10^3/uL (4.0-10.0)
[2024-08-13 13:38] LABS: LIPASE 40 U/L (12-53)
[2024-08-13 13:39] LABS: AMYLASE 68 U/L (30-118)
[2024-08-13 13:40] LABS: ALBUMIN 4.1 G/DL (3.2-5.2); ALKALINE PHOSPHATASE 114 U/L (35-104); ALT/SGPT 35 U/L (7.0-40); AST/SGOT 30 U/L (<34); BILIRUBIN,TOTAL 0.6 MG/DL (0.3-1.2); BLOOD UREA NITROGEN 16 MG/DL (9-23); CALCIUM LEVEL 9.4 MG/DL (8.5-10.1); CARBON DIOXIDE LEVEL 28 MMOL/L (20-31); CHLORIDE LEVEL 104 MMOL/L (98-107); CREATININE FOR GFR 0.73 MG/DL (0.55-1.30); GLOMERULAR FILTRATION RATE > 60.0 (>60); GLUCOSE, FASTING 79 MG/DL (60-100); POTASSIUM SERUM 4.4 MMOL/L (3.5-5.1); SODIUM LEVEL 142 MMOL/L (136-145); TOTAL PROTEIN 7.9 G/DL (5.7-8.2)
== END ==
LOC: M WUC 08:37
PROVIDERS: ATTEND Physician Assistant
DX: K56.41 Fecal impaction (principal)

== ENCOUNTER → 2024-10-18 | Outpatient (CLI) | payer OTHER ==
[2024-10-18 11:27] LABS: LIPASE 41 U/L (12-53)
[2024-10-18 11:28] LABS: AMYLASE 68 U/L (30-118)
[2024-10-18 11:29] LABS: ALBUMIN 3.9 G/DL (3.2-5.2); ALKALINE PHOSPHATASE 88 U/L (35-104); ALT/SGPT 31 U/L (7.0-40); AST/SGOT 18 U/L (<34); BILIRUBIN,TOTAL 0.6 MG/DL (0.3-1.2); BLOOD UREA NITROGEN 13 MG/DL (9-23); CALCIUM LEVEL 9.2 MG/DL (8.5-10.1); CARBON DIOXIDE LEVEL 26 MMOL/L (20-31); CHLORIDE LEVEL 104 MMOL/L (98-107); CREATININE FOR GFR 0.68 MG/DL (0.55-1.30); GLOMERULAR FILTRATION RATE > 60.0 (>60); GLUCOSE, FASTING 88 MG/DL (60-100); POTASSIUM SERUM 4.2 MMOL/L (3.5-5.1); SODIUM LEVEL 139 MMOL/L (136-145); TOTAL PROTEIN 7.3 G/DL (5.7-8.2)
== END ==
LOC: M PLALAB 07:04
PROVIDERS: ATTEND Nurse Practitioner Adult Health
DX: E66.9 Obesity, unspecified (principal); Z68.35 Body mass index [BMI] 35.0-35.9, adult

== ENCOUNTER 2024-11-01 15:23 | Emergency (ER) | payer OTHER ==
[~2024-11-01] VITALS: Ht 165.1 cm; Wt 95.3 kg
[2024-11-01] MEDS ORDERED: METH-1165 PO (18:48)
[2024-11-01] MEDS: KETOROLAC 30 MG/ML 1ML VIAL IM ONE (19:00)
[2024-11-01 19:05] VITALS: TEMP 98.5; O2SAT 100
[2024-11-01 19:20] VITALS: BP 162/106
== END 2024-11-01 19:26 | disposition home or self-care (01) ==
LOC: M ED 15:23
DX: M54.50 Low back pain, unspecified (principal); Z79.1 Long term (current) use of non-steroidal anti-inflammatories (NSAID); Z79.899 Other long term (current) drug therapy
CPT/HCPCS: 72110; 96372; 99283; J1885

== ENCOUNTER → 2025-03-15 | Outpatient (CLI) | payer OTHER ==
[~2025-03-15] MED LIST changes: -IBUP-1022 PO; +IBUP600T42 PO
[2025-03-15 14:21] LABS: PLATELET COUNT, AUTOMATED 306 10^3/uL (150-450)
[2025-03-15 14:44] LABS: ALT/SGPT 23 U/L (7.0-40); AST/SGOT 24 U/L (<34); CALCIUM LEVEL 9.8 MG/DL (8.5-10.1); CARBON DIOXIDE LEVEL 25 MMOL/L (20-31); CHLORIDE LEVEL 104 MMOL/L (98-107); CHOLESTEROL LEVEL 207 MG/DL (<200); CHOLESTEROL RISK RATIO 4.53 (<5); CREATININE FOR GFR 0.74 MG/DL (0.55-1.30); GLOMERULAR FILTRATION RATE > 90.0 (>60); LDL CHOLESTEROL 129.2 MG/DL (<100); NON-HDL-C 161.4 MG/DL; POTASSIUM SERUM 3.9 MMOL/L (3.5-5.1); SODIUM LEVEL 139 MMOL/L (136-145); TRIGLYCERIDES LEVEL 161 MG/DL (<150)
[2025-03-15 14:45] LABS: FREE T4 1.14 NG/DL (0.89-1.76)
== END ==
LOC: M PLALAB 09:38
PROVIDERS: ATTEND Nurse Practitioner Adult Health
DX: I10 Essential (primary) hypertension (principal); E03.9 Hypothyroidism, unspecified; Z68.33 Body mass index [BMI] 33.0-33.9, adult; E78.2 Mixed hyperlipidemia; K21.9 Gastro-esophageal reflux disease without esophagitis

== ENCOUNTER → 2025-04-27 | Outpatient (CLI) | payer OTHER ==
[~2025-04-27] MED LIST changes: +ISOVUE-370 76% 100 ML VIAL ONE
== END ==
LOC: M PLAIMG 10:36
PROVIDERS: ATTEND Nurse Practitioner Adult Health
DX: R19.4 Change in bowel habit (principal); K52.9 Noninfective gastroenteritis and colitis, unspecified; N83.202 Unspecified ovarian cyst, left side; K42.9 Umbilical hernia without obstruction or gangrene
CPT/HCPCS: 74177; Q9967